=== PATIENT | female | born 1960 | race Native Hawaiian/Other Pacific Islander ===

== ENCOUNTER 2017-11-07 11:21 | Outpatient (CLI) | payer OTHER ==
[~2017-11-07 11:21] MED LIST: BUDE1AER3 INH; DILT30TA24 PO; LIPITOR20 MG PO; METO50TA27 PO; RANITIDINE 150150 MG PO; XARELTO10 MG OR; XARELTO20 MG PO
== END 2017-11-07 19:19 | disposition home or self-care (01) ==
LOC: MAMMO 11:21
DX: Z12.31 Encounter for screening mammogram for malignant neoplasm of breast (principal)

== ENCOUNTER 2018-12-18 09:52 | Outpatient (CLI) | payer OTHER | END 2018-12-18 20:24 | disposition home or self-care (01) | LOC: MAMMO 09:52 | DX: Z12.31 Encounter for screening mammogram for malignant neoplasm of breast (principal) ==

== ENCOUNTER 2019-03-28 11:32 | Emergency (ER) | payer OTHER ==
[~2019-03-28] VITALS: Ht 182.9 cm; Wt 104.3 kg
[2019-03-28 12:24] VITALS: BP 126/82; TEMP 97.2
== END 2019-03-28 12:29 | disposition home or self-care (01) ==
LOC: ED 11:32
DX: L03.012 Cellulitis of left finger (principal); L03.114 Cellulitis of left upper limb; T63.301D Toxic effect of unspecified spider venom, accidental (unintentional), subsequent encounter
CPT/HCPCS: 96372; 99283; J2930

== ENCOUNTER 2019-04-09 11:52 | Outpatient (CLI) | payer OTHER | END 2019-04-09 23:22 | disposition home or self-care (01) | LOC: RAD 11:52 | DX: M79.602 Pain in left arm (principal); R60.0 Localized edema ==

== ENCOUNTER 2019-05-01 10:53 | Emergency (ER) | payer OTHER ==
[~2019-05-01] VITALS: Ht 175.3 cm; Wt 108.9 kg
[2019-05-01] MEDS ORDERED: SPIRIVA RE2.5 MCG/AC INH (11:09)
[2019-05-01] MEDS ORDERED: MOBIC15 MG PO (11:10)
[2019-05-01] MEDS ORDERED: FURO20TA67 PO (11:10)
[2019-05-01] MEDS ORDERED: MONTELUKAST SOD10 MG PO (11:11)
[2019-05-01] MEDS ORDERED: XARELTO20 MG (11:11)
[2019-05-01] MEDS ORDERED: OMEPRAZOLE DR10 MG PO (11:13)
[2019-05-01] MEDS ORDERED: DOK100 MG (11:14)
[2019-05-01] MEDS ORDERED: HYDR25TA60 PO (11:14)
[2019-05-01] MEDS ORDERED: POTA10CA3 PO (11:16)
[2019-05-01 11:20] LABS: PLATELET COUNT 425 K/uL (152-353)
[2019-05-01 11:28] LABS: SODIUM 137 mmol/L (136-145)
[2019-05-01 15:55] VITALS: BP 96/52; TEMP 97.3
== END 2019-05-01 15:55 | disposition short-term general hospital (02) ==
LOC: ED 10:53
PROVIDERS: Emergency Medicine
DX: I48.91 Unspecified atrial fibrillation (principal); J44.9 Chronic obstructive pulmonary disease, unspecified; I48.92 Unspecified atrial flutter; F17.210 Nicotine dependence, cigarettes, uncomplicated
CPT/HCPCS: 36415; 80053; 82550; 82553; 84484; 85027; 93005; 96360; 96361; 99285; J3490

== ENCOUNTER 2019-05-01 15:57 | Outpatient (CLI) | payer OTHER ==
[~2019-05-01 15:57] MED LIST changes: +DOK100 MG; +FURO20TA67 PO; +HYDR25TA60 PO; +MOBIC15 MG PO; +MONTELUKAST SOD10 MG PO; +OMEPRAZOLE DR10 MG PO; +POTA10CA3 PO; +SPIRIVA RE2.5 MCG/AC INH; +XARELTO20 MG
== END 2019-05-01 16:35 | disposition short-term general hospital (02) ==
LOC: AMB 15:57
DX: I48.91 Unspecified atrial fibrillation (principal)
CPT/HCPCS: A0425; A0427

== ENCOUNTER 2019-08-13 13:23 | Emergency (ER) | payer OTHER ==
[~2019-08-13] VITALS: Ht 175.3 cm; Wt 108.9 kg
[2019-08-13 13:38] VITALS: TEMP 97.7
[2019-08-13 14:45] LABS: PLATELET COUNT 426 K/uL (152-353)
[2019-08-13 14:52] LABS: POTASSIUM 3.3 mmol/L (3.6-5.2); SODIUM 139 mmol/L (136-145)
[2019-08-13 14:59] LABS: PARTIAL THROMBOPLASTIN TIME 36.8 SECONDS (24.5-33.6)
[2019-08-13 18:45] VITALS: BP 104/51
== END 2019-08-13 18:54 | disposition home or self-care (01) ==
LOC: ED 13:23
PROVIDERS: Family Medicine
DX: I48.92 Unspecified atrial flutter (principal); I95.9 Hypotension, unspecified; E87.6 Hypokalemia; R00.1 Bradycardia, unspecified; I45.19 Other right bundle-branch block; I48.91 Unspecified atrial fibrillation; Z79.899 Other long term (current) drug therapy
CPT/HCPCS: 80053; 80307; 81000; 82550; 84484; 85027; 85610; 85730; 93005; 96365; 99284

== ENCOUNTER 2019-09-26 13:20 | Emergency (ER) | payer OTHER ==
[~2019-09-26] VITALS: Ht 175.3 cm; Wt 108.9 kg
[2019-09-26 13:57] LABS: PLATELET COUNT 429 K/uL (152-353)
[2019-09-26 14:06] LABS: POTASSIUM 3.4 mmol/L (3.6-5.2); SODIUM 138 mmol/L (136-145)
[2019-09-26 15:45] VITALS: BP 129/81; TEMP 97.7
== END 2019-09-26 15:50 | disposition home or self-care (01) ==
LOC: ED 13:20
PROVIDERS: Hospitalist
DX: K64.8 Other hemorrhoids (principal); I48.91 Unspecified atrial fibrillation; R06.02 Shortness of breath
CPT/HCPCS: 36415; 80053; 80320; 81000; 82272; 82550; 83880; 84484; 85027; 85379; 85610; 85730; 93005; 96360; 96365; 99284

== ENCOUNTER 2019-12-26 20:03 | Outpatient (CLI) | payer OTHER ==
[2019-12-27] MEDS ORDERED: PROMETHAZINE25 M1 RE ×2 (08:42)
[2019-12-27] MEDS ORDERED: CYCLOBENZAPRINE10 MG PO ×2 (08:45)
[2019-12-27] MEDS ORDERED: CARTIA XT120 MG PO ×2 (11:12)
[2019-12-27] MEDS ORDERED: OMEPRAZOLE20 M1 PO ×2 (11:20)
== END 2019-12-26 20:14 | disposition short-term general hospital (02) ==
LOC: AMB 20:03
DX: R50.9 Fever, unspecified (principal); R20.0 Anesthesia of skin
CPT/HCPCS: A0425; A0427

== ENCOUNTER 2019-12-26 20:18 | Inpatient (IN) | payer OTHER ==
[~2019-12-26] VITALS: Ht 175.3 cm; Wt 105.7 kg
[2019-12-26 20:20] VITALS: BP 117/75; TEMP 99
[2019-12-26 20:46] LABS: PLATELET COUNT 536 K/uL (152-353)
[2019-12-26 20:51] LABS: POTASSIUM 3.3 mmol/L (3.6-5.2)
[2019-12-26 21:00] VITALS: BP 110/80
[2019-12-26 21:30] VITALS: BP 112/86
[2019-12-26 22:00] VITALS: BP 117/69
[2019-12-26 22:30] VITALS: BP 114/80
[2019-12-26 22:37] VITALS: TEMP 98.1
[2019-12-27] VITALS (7 sets, daily range): BP systolic 99–116; BP diastolic 53–62; TEMP 97.6–99.8; Ht 175.3 cm; Wt 105.7 kg
[2019-12-27] MEDS ORDERED: PROMETHAZINE25 M1 RE ×2 (08:42)
[2019-12-27] MEDS ORDERED: CYCLOBENZAPRINE10 MG PO ×2 (08:45)
[2019-12-27] MEDS ORDERED: CARTIA XT120 MG PO ×2 (11:12)
[2019-12-27] MEDS ORDERED: OMEPRAZOLE20 M1 PO ×2 (11:20)
[2019-12-28 04:00] VITALS: BP 92/45; TEMP 97.7
[2019-12-28 05:49] LABS: PLATELET COUNT 426 K/uL (152-353)
[2019-12-28 06:02] LABS: POTASSIUM 3.2 mmol/L (3.6-5.2)
[2019-12-28 08:00] VITALS: BP 109/64; TEMP 97.8
== END 2019-12-28 12:35 | disposition short-term general hospital (02) | DRG 309 ==
LOC: ED 20:18 → MED/SURG 22:00
PROVIDERS: Hospitalist; ADMIT Family Medicine
DX: I48.91 Unspecified atrial fibrillation (principal); J44.1 Chronic obstructive pulmonary disease with (acute) exacerbation; E87.1 Hypo-osmolality and hyponatremia; E87.3 Alkalosis; I48.92 Unspecified atrial flutter; I47.1 Supraventricular tachycardia; E87.6 Hypokalemia; E87.8 Other disorders of electrolyte and fluid balance, not elsewhere classified; E83.42 Hypomagnesemia; G89.29 Other chronic pain; Z87.891 Personal history of nicotine dependence; Z91.14 Patient's other noncompliance with medication regimen; I10 Essential (primary) hypertension; E86.0 Dehydration; E66.8 Other obesity
CPT/HCPCS: 36415; 36600; 80053; 81000; 82550; 82805; 83735; 83880; 84484; 85027; 87502; 93005; 94640; 94664; 94760; 96365; 96375; 96376; 99284; J1815; J1956; J2930; J3475; J3490

== ENCOUNTER 2019-12-28 12:47 | Outpatient (CLI) | payer OTHER ==
[~2019-12-28 12:47] MED LIST changes: +CARTIA XT120 MG PO; +CYCLOBENZAPRINE10 MG PO; +OMEPRAZOLE20 M1 PO; +PROMETHAZINE25 M1 RE
== END 2019-12-28 13:46 | disposition short-term general hospital (02) ==
LOC: AMB 12:47
DX: I48.91 Unspecified atrial fibrillation (principal); R94.31 Abnormal electrocardiogram [ECG] [EKG]
CPT/HCPCS: A0425; A0427

== ENCOUNTER 2020-01-04 06:11 | Outpatient (CLI) | payer OTHER ==
[2020-01-05] MEDS ORDERED: MOBIC15 MG PO (02:16)
[2020-01-05] MEDS ORDERED: INCRUSE EL62.5 MCG/I INH (02:28)
[2020-01-05] MEDS ORDERED: DIGO0.1230 PO (14:58)
[2020-01-05] MEDS ORDERED: GABA100C2 PO (14:59)
== END 2020-01-04 06:20 | disposition short-term general hospital (02) ==
LOC: AMB 06:11
DX: M79.672 Pain in left foot (principal); M79.671 Pain in right foot
CPT/HCPCS: A0425; A0427

== ENCOUNTER 2020-01-04 06:23 | Inpatient (IN) | payer OTHER ==
[~2020-01-04] VITALS: Ht 175.3 cm; Wt 91.4 kg
[2020-01-04] VITALS (30 sets, daily range): BP systolic 84–108; BP diastolic 23–78; TEMP 97.3–98.4; Ht 175.3 cm; Wt 91.4 kg
[2020-01-04 06:52] LABS: PLATELET COUNT 634 K/uL (152-353)
[2020-01-04 07:04] LABS: POTASSIUM 2.8 mmol/L (3.6-5.2)
[2020-01-05] VITALS (16 sets, daily range): BP systolic 79–112; BP diastolic 38–68; TEMP 98–98.4
[2020-01-05] MEDS ORDERED: MOBIC15 MG PO (02:16)
[2020-01-05] MEDS ORDERED: INCRUSE EL62.5 MCG/I INH (02:28)
[2020-01-05 07:55] LABS: POTASSIUM 3.4 mmol/L (3.6-5.2)
[2020-01-05 07:56] LABS: PLATELET COUNT 528 K/uL (152-353)
[2020-01-05] MEDS ORDERED: DIGO0.1230 PO (14:58)
[2020-01-05] MEDS ORDERED: GABA100C2 PO (14:59)
== END 2020-01-05 15:55 | disposition home or self-care (01) | DRG 641 ==
LOC: ED 06:23 → ICU 14:20
PROVIDERS: Emergency Medicine; Internal Medicine; ADMIT Family Medicine
DX: E87.6 Hypokalemia (principal); I48.91 Unspecified atrial fibrillation; J43.8 Other emphysema; K21.9 Gastro-esophageal reflux disease without esophagitis; I50.9 Heart failure, unspecified; I11.0 Hypertensive heart disease with heart failure; I95.89 Other hypotension
CPT/HCPCS: 36415; 80048; 80053; 81000; 82550; 83735; 85027; 93005; 96360; 96375; 99285; J0282; J1160; J2405; J3490

== ENCOUNTER 2021-04-19 17:16 | Outpatient (CLI) | payer OTHER ==
[~2021-04-19 17:16] MED LIST changes: +DIGO0.1230 PO; +GABA100C2 PO; +INCRUSE EL62.5 MCG/I INH
[2021-04-19 17:35] LABS: PLATELET COUNT 251 K/uL (152-353)
[2021-04-19 17:49] LABS: POTASSIUM 3.8 mmol/L (3.6-5.2)
== END 2021-04-19 22:31 | disposition home or self-care (01) ==
LOC: LABW 17:16
PROVIDERS: ATTEND Internal Medicine Medical Oncology
DX: C21.8 Malignant neoplasm of overlapping sites of rectum, anus and anal canal (principal); C78.7 Secondary malignant neoplasm of liver and intrahepatic bile duct; E53.8 Deficiency of other specified B group vitamins; D64.89 Other specified anemias; R53.81 Other malaise
CPT/HCPCS: 36415; 80053; 84100; 85027; 85044

== ENCOUNTER 2021-04-24 14:58 | Outpatient (CLI) | payer OTHER ==
[2021-04-24 15:29] LABS: PLATELET COUNT 242 K/uL (152-353)
[2021-04-24 15:40] LABS: POTASSIUM 4.1 mmol/L (3.6-5.2)
== END 2021-04-24 22:09 | disposition home or self-care (01) ==
LOC: LABW 14:58
PROVIDERS: ATTEND Internal Medicine Medical Oncology
DX: C21.8 Malignant neoplasm of overlapping sites of rectum, anus and anal canal (principal); D64.89 Other specified anemias; R53.81 Other malaise; E53.8 Deficiency of other specified B group vitamins; C78.7 Secondary malignant neoplasm of liver and intrahepatic bile duct
CPT/HCPCS: 36415; 80053; 85027

== ENCOUNTER 2021-05-01 14:23 | Outpatient (CLI) | payer OTHER ==
[2021-05-01 15:05] LABS: POTASSIUM 3.4 mmol/L (3.6-5.2)
[2021-05-01 15:08] LABS: PLATELET COUNT 227 K/uL (152-353)
== END 2021-05-01 22:24 | disposition home or self-care (01) ==
LOC: LABW 14:23
PROVIDERS: ATTEND Internal Medicine Medical Oncology
DX: C21.8 Malignant neoplasm of overlapping sites of rectum, anus and anal canal (principal); D64.89 Other specified anemias; R53.81 Other malaise; E53.8 Deficiency of other specified B group vitamins; C78.7 Secondary malignant neoplasm of liver and intrahepatic bile duct
CPT/HCPCS: 36415; 80053; 85027

== ENCOUNTER 2021-05-08 13:20 | Outpatient (CLI) | payer OTHER ==
[2021-05-08 13:37] LABS: PLATELET COUNT 207 K/uL (152-353)
[2021-05-08 13:47] LABS: POTASSIUM 3.5 mmol/L (3.6-5.2)
== END 2021-05-08 22:45 | disposition home or self-care (01) ==
LOC: LABW 13:20
PROVIDERS: ATTEND Nurse Practitioner Adult Health
DX: C21.8 Malignant neoplasm of overlapping sites of rectum, anus and anal canal (principal); C78.7 Secondary malignant neoplasm of liver and intrahepatic bile duct; E53.8 Deficiency of other specified B group vitamins; D64.89 Other specified anemias; R53.81 Other malaise
CPT/HCPCS: 36415; 80053; 85027

== ENCOUNTER 2021-05-17 13:02 | Outpatient (CLI) | payer OTHER ==
[2021-06-01 10:20] LABS: PLATELET COUNT 119 K/uL (152-353)
[2021-06-01 10:21] LABS: POTASSIUM 3.5 mmol/L (3.6-5.2)
== END 2021-05-17 16:00 | disposition home or self-care (01) ==
LOC: LABW 13:02
PROVIDERS: ATTEND Nurse Practitioner Adult Health
DX: C21.8 Malignant neoplasm of overlapping sites of rectum, anus and anal canal (principal); C78.7 Secondary malignant neoplasm of liver and intrahepatic bile duct; E53.8 Deficiency of other specified B group vitamins; D64.89 Other specified anemias; R53.81 Other malaise
CPT/HCPCS: 36415; 80053; 85027

== ENCOUNTER 2021-06-05 12:48 | Outpatient (CLI) | payer OTHER ==
[2021-06-05 13:00] LABS: PLATELET COUNT 130 K/uL (152-353)
[2021-06-05 13:13] LABS: POTASSIUM 3.9 mmol/L (3.6-5.2)
== END 2021-06-05 19:18 | disposition home or self-care (01) ==
LOC: LABW 12:48
PROVIDERS: ATTEND Internal Medicine Medical Oncology
DX: C21.8 Malignant neoplasm of overlapping sites of rectum, anus and anal canal (principal)
CPT/HCPCS: 36415; 80053; 85027

== ENCOUNTER 2021-06-20 14:19 | Outpatient (CLI) | payer OTHER ==
[2021-06-20 14:37] LABS: PLATELET COUNT 209 K/uL (152-353)
[2021-06-20 14:53] LABS: POTASSIUM 4.1 mmol/L (3.6-5.2)
== END 2021-06-20 21:04 | disposition home or self-care (01) ==
LOC: LABW 14:19
PROVIDERS: ATTEND Internal Medicine Medical Oncology
DX: C21.8 Malignant neoplasm of overlapping sites of rectum, anus and anal canal (principal); D64.89 Other specified anemias; R53.81 Other malaise; E53.8 Deficiency of other specified B group vitamins; C78.7 Secondary malignant neoplasm of liver and intrahepatic bile duct
CPT/HCPCS: 36415; 80053; 85027

== ENCOUNTER 2021-07-06 16:37 | Outpatient (CLI) | payer OTHER ==
[2021-07-06 16:59] LABS: PLATELET COUNT 304 K/uL (152-353)
[2021-07-06 17:10] LABS: POTASSIUM 3.7 mmol/L (3.6-5.2)
== END 2021-07-06 20:03 | disposition home or self-care (01) ==
LOC: LABW 16:37
PROVIDERS: ATTEND Internal Medicine Medical Oncology
DX: C21.8 Malignant neoplasm of overlapping sites of rectum, anus and anal canal (principal); D64.89 Other specified anemias; R53.81 Other malaise; E53.8 Deficiency of other specified B group vitamins; C78.7 Secondary malignant neoplasm of liver and intrahepatic bile duct
CPT/HCPCS: 36415; 80053; 85008; 85027

== ENCOUNTER 2021-07-17 14:12 | Outpatient (CLI) | payer OTHER ==
[2021-07-17 14:48] LABS: PLATELET COUNT 283 K/uL (152-353)
== END 2021-07-17 21:26 | disposition home or self-care (01) ==
LOC: LABW 14:12
PROVIDERS: ATTEND Internal Medicine Medical Oncology
DX: R06.09 Other forms of dyspnea (principal); R42 Dizziness and giddiness; R53.83 Other fatigue; C21.8 Malignant neoplasm of overlapping sites of rectum, anus and anal canal; C78.7 Secondary malignant neoplasm of liver and intrahepatic bile duct; E53.8 Deficiency of other specified B group vitamins; D64.89 Other specified anemias; R53.81 Other malaise
CPT/HCPCS: 36415; 80053; 85027

== ENCOUNTER 2021-07-25 14:11 | Outpatient (CLI) | payer OTHER ==
[2021-07-25 14:27] LABS: PLATELET COUNT 198 K/uL (152-353)
[2021-07-25 14:40] LABS: POTASSIUM 4.8 mmol/L (3.6-5.2)
== END 2021-07-25 19:15 | disposition home or self-care (01) ==
LOC: LABW 14:11
PROVIDERS: ATTEND Internal Medicine Medical Oncology
DX: R06.09 Other forms of dyspnea (principal); R42 Dizziness and giddiness; R53.83 Other fatigue; C21.8 Malignant neoplasm of overlapping sites of rectum, anus and anal canal; C78.7 Secondary malignant neoplasm of liver and intrahepatic bile duct; E53.8 Deficiency of other specified B group vitamins; D64.89 Other specified anemias; R53.81 Other malaise
CPT/HCPCS: 36415; 80053; 85027

== ENCOUNTER 2021-07-30 11:33 | Outpatient (CLI) | payer OTHER ==
[2021-07-30 11:56] LABS: PLATELET COUNT 213 K/uL (152-353)
[2021-07-30 12:19] LABS: POTASSIUM 3.7 mmol/L (3.6-5.2)
== END 2021-07-30 21:16 | disposition home or self-care (01) ==
LOC: LABW 11:33
PROVIDERS: ATTEND Internal Medicine Medical Oncology
DX: C21.8 Malignant neoplasm of overlapping sites of rectum, anus and anal canal (principal); R06.09 Other forms of dyspnea; R42 Dizziness and giddiness; R53.83 Other fatigue; D64.89 Other specified anemias; R53.81 Other malaise; E53.8 Deficiency of other specified B group vitamins; C78.7 Secondary malignant neoplasm of liver and intrahepatic bile duct
CPT/HCPCS: 36415; 80053; 85027

== ENCOUNTER 2021-08-13 14:27 | Outpatient (CLI) | payer OTHER ==
[2021-08-13 14:38] LABS: PLATELET COUNT 179 K/uL (152-353)
[2021-08-13 14:44] LABS: POTASSIUM 3.8 mmol/L (3.6-5.2)
== END 2021-08-13 22:26 | disposition home or self-care (01) ==
LOC: LAB 14:27
PROVIDERS: ATTEND Internal Medicine Medical Oncology
DX: C21.8 Malignant neoplasm of overlapping sites of rectum, anus and anal canal (principal); R06.09 Other forms of dyspnea; R42 Dizziness and giddiness; R53.83 Other fatigue; D64.89 Other specified anemias; R53.81 Other malaise; E53.8 Deficiency of other specified B group vitamins; C78.7 Secondary malignant neoplasm of liver and intrahepatic bile duct
CPT/HCPCS: 36415; 80053; 85027

== ENCOUNTER 2021-08-16 09:10 | Inpatient (IN) | payer OTHER ==
[~2021-08-16] VITALS: Ht 175.3 cm; Wt 73.7 kg
[2021-08-16] VITALS (7 sets, daily range): BP systolic 90–129; BP diastolic 52–89; TEMP 97–100.3; Ht 175.3 cm; Wt 73.7 kg
[2021-08-16 09:30] LABS: PLATELET COUNT 129 K/uL (152-353)
[2021-08-16 10:09] LABS: POTASSIUM 4.4 mmol/L (3.6-5.2)
[2021-08-16 10:12] LABS: PARTIAL THROMBOPLASTIN TIME 23.6 SECONDS (24.5-33.6)
[2021-08-16] MEDS ORDERED: LIPITOR20 MG PO (22:41)
[2021-08-16] MEDS ORDERED: DEXAMETHASON4 MG PO (22:44)
[2021-08-16] MEDS ORDERED: PARO20TA3 PO (22:46)
[2021-08-16] MEDS ORDERED: KP FOLIC ACID1 MG PO (22:47)
[2021-08-16] MEDS ORDERED: ELIQUIS5 MG PO (22:48)
[2021-08-16] MEDS ORDERED: OMEPRAZOLE DR20 MG PO (22:48)
[2021-08-16] MEDS ORDERED: CARV3.12 PO (22:50)
[2021-08-16] MEDS ORDERED: PACERONE200 MG PO (22:59)
[2021-08-17 00:11] VITALS: BP 89/51; TEMP 98.4
[2021-08-17 04:05] VITALS: BP 94/50; TEMP 97.8
[2021-08-17 05:12] LABS: POTASSIUM 3.9 mmol/L (3.6-5.2)
[2021-08-17 05:13] LABS: PLATELET COUNT 92 K/uL (152-353)
[2021-08-17 08:00] VITALS: BP 93/67; TEMP 97.9
[2021-08-17 12:00] VITALS: BP 95/51; TEMP 97.6
[2021-08-17 16:00] VITALS: BP 93/52; TEMP 97.6
[2021-08-17 20:00] VITALS: BP 97/57; TEMP 97.9
[2021-08-18 00:06] VITALS: BP 93/59; TEMP 98.7
[2021-08-18 04:00] VITALS: BP 96/54; TEMP 98
[2021-08-18 05:08] LABS: PLATELET COUNT 105 K/uL (152-353)
[2021-08-18 05:26] LABS: POTASSIUM 3.8 mmol/L (3.6-5.2)
[2021-08-18 08:00] VITALS: BP 109/67; TEMP 98.8
[2021-08-18 12:00] VITALS: BP 91/47; TEMP 98
[2021-08-18 16:00] VITALS: BP 109/68; TEMP 97.9
[2021-08-18 20:15] VITALS: BP 112/70; TEMP 97.6
[2021-08-19 00:08] VITALS: BP 108/64; TEMP 97.5
[2021-08-19 04:00] VITALS: BP 110/57; TEMP 97.6
[2021-08-19 04:32] LABS: PLATELET COUNT 128 K/uL (152-353)
[2021-08-19 08:00] VITALS: BP 121/72; TEMP 97.5
[2021-08-19 12:00] VITALS: BP 100/57; BP 118/72; TEMP 97.3; TEMP 98.3
[2021-08-19 16:00] VITALS: BP 102/58; TEMP 97.7
[2021-08-19 20:08] VITALS: BP 100/66; TEMP 97.7
[2021-08-20 00:09] VITALS: BP 104/58; TEMP 97.6
[2021-08-20 04:00] VITALS: BP 93/54; TEMP 97.5
[2021-08-20 04:25] LABS: PLATELET COUNT 150 K/uL (152-353)
[2021-08-20 04:32] LABS: POTASSIUM 4.2 mmol/L (3.6-5.2)
[2021-08-20 08:00] VITALS: BP 123/71; TEMP 97.7
[2021-08-20 12:00] VITALS: BP 111/71; TEMP 97.9
[2021-08-20 16:00] VITALS: BP 106/68; TEMP 97.8
[2021-08-20 19:50] VITALS: BP 98/56; TEMP 97.8
[2021-08-21] VITALS (7 sets, daily range): BP systolic 101–105; BP diastolic 54–63; TEMP 97.2–98
[2021-08-21 05:37] LABS: PLATELET COUNT 143 K/uL (152-353)
[2021-08-21 05:45] LABS: POTASSIUM 4.4 mmol/L (3.6-5.2)
[2021-08-22 04:25] VITALS: BP 100/57; TEMP 97.8
[2021-08-22 04:52] LABS: PLATELET COUNT 150 K/uL (152-353)
[2021-08-22 08:00] VITALS: BP 105/62; TEMP 97.4
[2021-08-22 12:00] VITALS: BP 112/67; TEMP 97.6
[2021-08-22 16:00] VITALS: BP 116/65; TEMP 97.6
[2021-08-22 20:00] VITALS: BP 98/48; TEMP 97.7
[2021-08-23] VITALS: BP 106/92; TEMP 97.6
[2021-08-23 04:00] VITALS: BP 104/61; TEMP 97.9
[2021-08-23 05:25] LABS: PLATELET COUNT 151 K/uL (152-353)
[2021-08-23 05:28] LABS: POTASSIUM 4.1 mmol/L (3.6-5.2)
[2021-08-23 08:00] VITALS: BP 126/70; TEMP 97.7
[2021-08-23 12:00] VITALS: BP 124/76; TEMP 97.4
[2021-08-23 16:00] VITALS: BP 99/57; TEMP 98.2
[2021-08-23 20:00] VITALS: BP 92/63; TEMP 97.6
[2021-08-24] VITALS: BP 96/56; TEMP 97.7
[2021-08-24 04:00] VITALS: BP 102/62; TEMP 98
[2021-08-24 08:00] VITALS: BP 102/59; TEMP 97.9
[2021-08-24 12:00] VITALS: BP 106/53; TEMP 98.6
[2021-08-24 16:00] VITALS: BP 102/57; TEMP 97.9
[2021-08-24 20:11] VITALS: BP 92/55; TEMP 97.6
[2021-08-25] VITALS: BP 109/60; TEMP 97.6
[2021-08-25 04:00] VITALS: BP 113/58; TEMP 97.8
[2021-08-25 08:00] VITALS: BP 96/53; TEMP 97.5
[2021-08-25 12:00] VITALS: BP 86/44; TEMP 98
[2021-08-25 16:00] VITALS: BP 101/57; TEMP 97.5
[2021-08-25 20:27] VITALS: BP 90/55; TEMP 97.8
[2021-08-26] VITALS (7 sets, daily range): BP systolic 90–110; BP diastolic 51–63; TEMP 97.3–98.6
[2021-08-26 05:13] LABS: PLATELET COUNT 142 K/uL (152-353)
[2021-08-26 06:13] LABS: POTASSIUM 4.4 mmol/L (3.6-5.2)
[2021-08-27 04:28] VITALS: BP 101/56; TEMP 97.8
[2021-08-27 05:58] LABS: PLATELET COUNT 128 K/uL (152-353)
[2021-08-27 06:10] LABS: POTASSIUM 4.1 mmol/L (3.6-5.2)
[2021-08-27 08:00] VITALS: BP 114/69; TEMP 97.6
[2021-08-27 12:00] VITALS: BP 90/44; TEMP 97.7
[2021-08-27 16:00] VITALS: BP 105/60; TEMP 98.7
[2021-08-27 20:00] VITALS: BP 97/61; TEMP 97.5
[2021-08-28 00:21] VITALS: BP 95/58; TEMP 97.5
[2021-08-28 04:00] VITALS: BP 138/57; TEMP 97.8
[2021-08-28 06:13] LABS: PLATELET COUNT 164 K/uL (152-353)
[2021-08-28 06:31] LABS: POTASSIUM 3.8 mmol/L (3.6-5.2)
[2021-08-28 08:00] VITALS: BP 121/66; TEMP 97.9
[2021-08-28 12:00] VITALS: BP 102/47; TEMP 97.5
== END 2021-08-28 15:13 | disposition swing bed (61) | DRG 193 ==
LOC: ED 09:10 → MED/SURG 13:40
PROVIDERS: Emergency Medicine; ADMIT Internal Medicine Endocrinology, Diabetes & Metabolism; ATTEND Internal Medicine Endocrinology, Diabetes & Metabolism
DX: J18.8 Other pneumonia, unspecified organism (principal); J96.01 Acute respiratory failure with hypoxia; I21.4 Non-ST elevation (NSTEMI) myocardial infarction; J44.0 Chronic obstructive pulmonary disease with (acute) lower respiratory infection; C22.8 Malignant neoplasm of liver, primary, unspecified as to type; C79.89 Secondary malignant neoplasm of other specified sites; R91.1 Solitary pulmonary nodule; I11.0 Hypertensive heart disease with heart failure; I50.9 Heart failure, unspecified; I48.91 Unspecified atrial fibrillation; Z86.711 Personal history of pulmonary embolism; I25.10 Atherosclerotic heart disease of native coronary artery without angina pectoris; R62.7 Adult failure to thrive
CPT/HCPCS: 36415; 36416; 36600; 51702; 80048; 80053; 82550; 82805; 83880; 84484; 85027; 85379; 85610; 85730; 87635; 93005; 94760; 96365; 96375; 99284; J0696; J1885; J1956; J2175; J2405; Q9963; U0003

== ENCOUNTER 2021-08-28 15:13 | Inpatient (IN) | payer OTHER ==
[~2021-08-28] VITALS: Ht 175.3 cm; Wt 88.1 kg
[~2021-08-28 15:13] MED LIST changes: +CARV3.12 PO; +DEXAMETHASON4 MG PO; +ELIQUIS5 MG PO; +KP FOLIC ACID1 MG PO; +OMEPRAZOLE DR20 MG PO; +PACERONE200 MG PO; +PARO20TA3 PO
[2021-08-28 17:57] VITALS: BP 99/56; TEMP 97.8; Ht 175.3 cm; Wt 88.1 kg
[2021-08-28 21:55] VITALS: BP 95/55; TEMP 97.4
[2021-08-29 20:00] VITALS: BP 89/54; TEMP 98
[2021-08-30 08:00] VITALS: BP 102/65; TEMP 97.9
[2021-08-30 20:00] VITALS: BP 84/43; TEMP 97.9
[2021-08-31 08:00] VITALS: BP 111/63; TEMP 97.6
[2021-08-31 20:00] VITALS: BP 95/51; TEMP 97.5
[2021-09-01 08:00] VITALS: BP 111/57; TEMP 97.8
[2021-09-01 20:00] VITALS: BP 98/61; TEMP 98
[2021-09-02 08:00] VITALS: BP 103/57; TEMP 97.8
[2021-09-02 20:00] VITALS: BP 105/51; TEMP 97.5
[2021-09-03 08:00] VITALS: BP 105/62; TEMP 98.1
[2021-09-03 20:14] VITALS: BP 106/68; TEMP 97.6
[2021-09-04 08:00] VITALS: BP 110/62; TEMP 97.6
[2021-09-04 20:24] VITALS: BP 124/82; TEMP 98.7
[2021-09-05 08:00] VITALS: BP 110/60; TEMP 97.9
[2021-09-05 20:00] VITALS: BP 108/61; TEMP 97.9
[2021-09-06 08:00] VITALS: BP 112/66; TEMP 97.3
[2021-09-06 20:00] VITALS: BP 104/58; TEMP 97.8
[2021-09-07 08:00] VITALS: BP 112/51; TEMP 97.6
[2021-09-07 20:29] VITALS: BP 112/63; TEMP 98.1
[2021-09-08 08:00] VITALS: BP 109/63; TEMP 97.9
[2021-09-08 20:19] VITALS: BP 98/55; TEMP 97.8
[2021-09-09 08:00] VITALS: BP 111/70; TEMP 97.5
[2021-09-09 20:19] VITALS: BP 103/59; TEMP 97.8
[2021-09-10 08:00] VITALS: BP 130/70; TEMP 98.1
[2021-09-10 20:00] VITALS: BP 120/68; TEMP 97.6
[2021-09-11 08:00] VITALS: BP 138/70; TEMP 98.2
[2021-09-11 20:27] VITALS: BP 111/67; TEMP 97.4
[2021-09-12 08:00] VITALS: BP 117/62; TEMP 98
== END 2021-09-12 12:50 | DRG 193 ==
LOC: MED/SURG 15:13
PROVIDERS: ADMIT Internal Medicine Endocrinology, Diabetes & Metabolism; ATTEND Internal Medicine Endocrinology, Diabetes & Metabolism
DX: J18.1 Lobar pneumonia, unspecified organism (principal); J96.01 Acute respiratory failure with hypoxia; J44.9 Chronic obstructive pulmonary disease, unspecified; C22.9 Malignant neoplasm of liver, not specified as primary or secondary; I25.10 Atherosclerotic heart disease of native coronary artery without angina pectoris; I21.4 Non-ST elevation (NSTEMI) myocardial infarction; M62.81 Muscle weakness (generalized); R26.2 Difficulty in walking, not elsewhere classified; Z74.1 Need for assistance with personal care; Z91.81 History of falling; I48.91 Unspecified atrial fibrillation; R07.81 Pleurodynia; R26.81 Unsteadiness on feet; I10 Essential (primary) hypertension; F32.9 Major depressive disorder, single episode, unspecified; E66.9 Obesity, unspecified; Z92.21 Personal history of antineoplastic chemotherapy; Z86.711 Personal history of pulmonary embolism; E78.00 Pure hypercholesterolemia, unspecified
CPT/HCPCS: 87081; 94760; J1642